=== PATIENT | female | born 1995 | race Caucasian/White ===

== ENCOUNTER 2018-08-20 10:45 | Emergency (ER) | payer MEDICAID ==
[~2018-08-20] VITALS: Ht 157.5 cm; Wt 64.9 kg
[2018-08-20 10:52] VITALS: BP 132/82; Ht 157.5 cm; Wt 64.9 kg
== END 2018-08-20 11:40 | disposition home or self-care (01) ==
LOC: ED 10:45
DX: L50.9 Urticaria, unspecified (principal)